=== PATIENT | male | born 1940 | race Caucasian/White ===

== ENCOUNTER 2017-04-05 19:04 | Emergency (ER) | payer OTHER ==
--- NOTE | ~2017-04-05 | CR21 ---
[facility] A Service of [facility] RADIOLOGY TEXT RESULTS PATIENT: FRIDA ANSARI LOCATION: [place] : 38 UNIT #: [id number] AGE: [address]: Page Hines MD SEX: M ORDER DR: [id number] [facility]. [place], [place] [address] [id number] E MR#: [id number] Acc #: [id number] NAME: FRIDA ANSARI. : 1940 SEX: M STUDY DATE/TIME: 04/05/2017 19:55 UNIT: CFTX ROOM: STUDY DESCRIPTION: CR Ankle Min 3 Views Rt Attending Physician: Page Hines M.D. Ordering Physician: Page Hines M.D. Primary Care Physician: Lm Peres M.D. MEDICAL IMAGING REPORT This report is preliminary unless electronic signature is present EXAM Three views right ankle. DATE 04/05/2017 HISTORY 76-year-old male with right ankle pain after falling today. COMPARISON None FINDINGS There is a comminuted calcaneal fracture involving the mid and hind segments. No gross dislocation is seen. Questionable tiny avulsion fracture from the tip of the medial malleolus. Diffuse right ankle soft tissue swelling. Base of fifth metatarsals intact. IMPRESSION 1. Comminuted fracture of the mid and posterior portions of the calcaneus without dislocation. 2. Questionable tiny cortical avulsion of the tip of the medial malleolus. 3. No gross ankle joint dislocation. 4. Diffuse soft tissue swelling. Dictated by... Olga Jasmine M.D. THIS IS AN ELECTRONICALLY VERIFIED REPORT Olga Jasmine M.D. at 04/06/2017 12:[address] [facility] [place] [facility]IOLOGY TEXT RESULTS PATIENT: FRIDA ANSARI LOCATION: [facility] : 38 UNIT #: [id number] AGE: [address]: Page Hines MD SEX: M ORDER DR: CAMACHO/rebecca TD: 04/05/2017 23:03 JOB #: [id number] MEDICAL IMAGING REPORT Page 1 of 1 COPY
--- NOTE | ~2017-04-05 | CR181 ---
[facility] A Service of [facility] RADIOLOGY TEXT RESULTS PATIENT: FRIDA ANSARI LOCATION: [place] : 38 UNIT #: [id number] AGE: [address]: Page Hines MD SEX: M ORDER DR: [id number] [facility]. [place], [place] [address] [id number] E MR#: [id number] Acc #: [id number] NAME: FRIDA ANSARI. : 1940 SEX: M STUDY DATE/TIME: 04/05/2017 20:21 UNIT: CFTX ROOM: STUDY DESCRIPTION: CR Lumbar Spine 2 or 3 Views Attending Physician: Page Hines M.D. Ordering Physician: Page Hines M.D. Primary Care Physician: Lm Peres M.D. MEDICAL IMAGING REPORT This report is preliminary unless electronic signature is present EXAM Three views lumbar spine. DATE 04/05/2017 HISTORY 76-year-old male lower back pain today. Fell. COMPARISON None. FINDINGS No lumbar spine fracture or subluxation is seen. Anterior osteophyte formation is seen at L2 and L3. Disc space height appears preserved. Facet arthropathy is present at L5-S1. No sacroiliac joint or pubic symphysis diastasis. Cholecystectomy. IMPRESSION 1. No acute lumbar spine findings. 2. L5-S1 facet arthropathy. Dictated by... Olga Jasmine M.D. THIS IS AN ELECTRONICALLY VERIFIED REPORT Olga Jasmine M.D. at 04/06/2017 12:28 PM LLH/katyw TD: 04/05/2017 23:14 JOB #: [id number] [facility] A Service [facility] RADIOLOGY TEXT RESULTS PATIENT: FRIDA ANSARI LOCATION: [place] : 38 UNIT #: [id number] AGE: [address]: Page Hines MD SEX: M ORDER DR: MEDICAL IMAGING REPORT Page 1 of 1 COPY
[~2017-04-05 19:04] MED LIST: ALEVE220 M1; ATENOLOL; BAYER CHEWABLE81 MG; ZOCOR-BORROW, D10 MG
== END 2017-04-05 23:09 | disposition home or self-care (01) ==
LOC: CFTX 19:04 → CED 19:04 → CFTX 20:06
DX: S92.011A Displaced fracture of body of right calcaneus, initial encounter for closed fracture (principal); Z88.0 Allergy status to penicillin; Z88.2 Allergy status to sulfonamides; Z88.7 Allergy status to serum and vaccine; Z79.82 Long term (current) use of aspirin; Z79.899 Other long term (current) drug therapy; W19.XXXA Unspecified fall, initial encounter; Y92.009 Unspecified place in unspecified non-institutional (private) residence as the place of occurrence of the external cause
CPT/HCPCS: 72100; 73610; 99283